=== PATIENT | female | born 1995 | race Caucasian/White ===

== ENCOUNTER → 2019-10-07 15:42 | Outpatient (CLI) | payer OTHER, SELFPAY ==
--- NOTE | ~2019-10-07 | MR_ITS ---
EXAMINATION: MR brain/brain stem wo/w con EXAM DATE: 10/07/2019 17:08 INDICATION: Migraine headache with sore, light flashes right eye. TECHNIQUE: Magnetic resonance imaging (MRI) of the brain/brain stem obtained without contrast. Sagit buck T1, axial diffusion, gradient echo (T2*), T1, T2, FLAIR sequences obtained. Patient was then inj ected with 14 cc intravenous Multihance contrast. Axial and coronal postcontrast T1 weighted sequence s obtained. There is no prior study for comparison. FINDINGS: There are no areas of restricted diffusion to suggest acute infarction. There is no acute hemorrhage seen on the T2*, a hemosiderin sensitive sequence. No intraparenchymal brain mass. The ve ntricles are normal in size. There are no extra-axial collections. Flow voids are seen in the cereb ral arteries on the T2-weighted sequences consistent with their expected patency. The orbits are unr emarkable. Soft tissue is unremarkable. Left frontal lobe developmental venous anomaly, not a clin ically significant finding. No other areas of abnormal enhancement. IMPRESSION: 1. Normal brain MRI examination. Reviewed, dictated and finalized at location A.
[2019-10-07 16:13] LABS: Estimated Glomerular Filt Rate > 60
== END ==
PROVIDERS: PCP Family Medicine; Visit Provider Family Medicine
DX: G43.109 Migraine with aura, not intractable, without status migrainosus (principal)
CPT/HCPCS: 36415; 70553; A9577

== ENCOUNTER 2023-06-16 08:49 | Emergency (ER) | payer OTHER, SELFPAY ==
[2023-06-16 09:00] VITALS: BP 124/93; PULSE 104; RESP 16; TEMP 36.9; O2SAT 99
--- NOTE | 2023-06-16 09:01 | ED.NECK ---
HPI - Neck Pain/Injury General Chief Complaint: Neck Pain/Injury Stated Complaint: NECK PAIN Time Seen by Provider: 06/16/23 09:01 Source: patient Mode of arrival: ambulatory Limitations: no limitations History of Present Illness HPI Narrative: 27-year-old female presented for complaint of left neck pain for 2 days. She states she woke in the morning with neck pain, assuming she slept wrong. Endorses decreased ROM to neck due to pain and stiffness. Since onset she has taking ibuprofen and Tylenol without relief. Was seen by chiropractor yesterday for adjustments and stretching. After that she started with an intermittent 'shooting' pain from shoulder to left base of skull. Denies pain shooting down arms, numbness, tingling or weakness to extremities. Patient plans to return to chiropractor this morning. Related Data Allergies Allergy/AdvReac Type Severity Reaction Status Date / Time cefprozil Allergy Unknown Skin Verified 06/16/23 09:02 Reaction erythromycin base Allergy Unknown Nausea Verified 06/16/23 09:02 Penicillins Allergy Unknown Skin Verified 06/16/23 09:02 Reaction Sulfa (Sulfonamide Allergy Unknown Skin Verified 06/16/23 09:02 Antibiotics) Reaction Review of Systems Review of Systems: CONSTITUTIONAL: Denies body aches, fever, chills, or sweats. EYES: Denies visual changes, redness, or discharge. ENT: Denies rhinorrhea, congestion, sore throat, or otalgia. CARDIOVASCULAR: Denies chest pain, palpitations, or edema. RESPIRATORY: Denies cough or dyspnea. GASTROINTESTINAL: Denies abdominal pain, nausea, vomiting, or diarrhea. GENITOURINARY: Denies dysuria or hematuria. SKIN: Denies rash, itching, or wounds. MUSCULOSKELETAL:Reports left neck pain Denies back pain, joint pain, or myalgia. NEUROLOGIC: Denies headache, numbness, tingling, or weakness. All systems reviewed & are unremarkable except as noted in HPI and below PMFSH Past Medical History Medical History (Updated 06/16/23 @ 09:17 by Shirley Barlow APRN) Fibroadenoma of left breast Generalized anxiety disorder Family History Family History Other Family history of malignant neoplasm No family history of malignant neoplasm Social History Social History Smoking status: Never smoker Alcohol intake: current Substance use: never Substance use type: does not use Lack of Transportation: No Lack of Food: Never True Current Housing: I Have Housing Concerned About Future Housing: No Difficulty Paying Gas/Electric Bills: No Difficulty Paying for Meds: No Currently Unemployed: No Education: Bachelor's Degree Difficulty w/ Childcare or Family Care: No Comments At time of signature, I have reviewed and agree with nursing past medical, surgical, social and family history unless otherwise noted. Please see nursing chart for further information. There is no relevant family history pertinent to the presenting complaint Exam Narrative: GENERAL: Well-appearing, well-nourished, and in no acute distress. HEAD: Normocephalic, atraumatic. EYES: EOMI. No redness or drainage. Conjunctivae normal. ENT: Mucous membranes pink and moist. No rhinorrhea. TMs normal bilaterally. Throat normal. Uvula midline. NECK: Decreased AROM in all directions; left trap tenderness. no VPT. Supple. No lymphadenopathy. CHEST: No respiratory distress. Clear to auscultation. HEART: Regular rate and rhythm. No murmur appreciated. Normal peripheral pulses. ABDOMEN: Soft, nontender, nondistended, normal active bowel sounds. MUSCULOSKELETAL: No bony tenderness. EXTREMITIES: Normal range of motion. No edema. SKIN: Warm, dry, no rash. Capillary refill normal. Normal skin turgor. NEURO: No focal deficits. Alert and oriented x3. Gait steady. PSYCH: Normal affect. Neck: Neck images: 1. area of tenderness with palpation Course
== END 2023-06-16 09:22 | disposition home or self-care (01) ==
PROVIDERS: Emergency Provider Nurse Practitioner Family; PCP Physician Assistant
DX: M54.2 Cervicalgia (principal); F41.1 Generalized anxiety disorder
CPT/HCPCS: 99213; G0463

== ENCOUNTER 2024-09-09 09:30 | Outpatient (CLI) | payer BC, SELFPAY ==
[2024-09-10 08:36] LABS: Kit Draw Collected
== END 2024-09-09 09:31 | disposition home or self-care (01) ==
LOC: ANHGOSHLAB 09:32
PROVIDERS: PCP Family Medicine; Visit Provider Family Medicine
DX: F41.1 Generalized anxiety disorder (principal); F32.A Depression, unspecified; E78.5 Hyperlipidemia, unspecified; Z79.899 Other long term (current) drug therapy
CPT/HCPCS: 36415

== ENCOUNTER 2025-02-19 08:45 | Outpatient (CLI) | payer BC, SELFPAY ==
--- NOTE | ~2025-02-19 | MMUS_ITS ---
EXAMINATION: MM diagnostic christal LT w caryl, US breast LT limited INDICATION: 29-year old female; with LEFT clear colored nipple discharge. History of prior palpable l ump for over 5 years which was evaluated with ultrasound 07/14/2019 and 02/03/2016 and felt to represen t a benign finding. COMPARISON: Ultrasound 07/14/2019 and 02/03/2016. TECHNIQUE: Digital breast tomosynthesis True lateral and CC and MLO views and spot compression views of the LEFT breast were obtained with computer-aided detection to assist in interpretation of the jorge dy. A radiopaque skin marker was placed over the palpable area. Targeted ultrasound of the left breas t was completed. MAMMOGRAM FINDINGS: The breasts are heterogeneously dense, which may obscure small masses. A circumscribed mass containing a focus of calcification persists on spot compression views in the la teral at middle depth that correlates to the radiopaque skin marker. In addition, there is a mass wit h ill-defined margins also seen within the lateral, at middle depth in the left breast, slightly medi al to the lesion described above. LEFT BREAST ULTRASOUND FINDINGS: Targeted evaluation of the subareolar location and lateral breast was completed. There are normal khoa earing ducts seen. At 3:00, 4 cm from the nipple corresponding to the area of palpable lump there is a hypoechoic mass w ith mildly irregular margins that measure 0.5 x 0.63 x 0.34 cm. At 3:00, 3 cm from the nipple, corresponding to the additional mammographic abnormality seen there is an irregular shaped hypoechoic mass with internal vascularity that measure 1.04 x 0.94 x 0.51 cm. IMPRESSION: 1. Indeterminate left breast mass at 3:00, 4 cm from the nipple. Biopsy recommended. 2. Indeterminate left breast mass at 3:00 3 cm from the nipple. Biopsy is recommended 3. Incomplete evaluation of patient's nipple discharge. Consider further evaluation with breast MRI. RECOMMENDATION: Ultrasound-guided core needle biopsy of 2 solid masses at 3:00. Bilateral breast MRI which should be completed prior to the biopsy procedure. BI-RADS 4, SUSPICIOUS Reviewed, dictated and finalized at location B. IMPRESSION: 1. Indeterminate left breast mass at 3:00, 4 cm from the nipple. Biopsy recomm ended. 2. Indeterminate left breast mass at 3:00 3 cm from the nipple. Biopsy is estefanía mmended 3. Incomplete evaluation of patient's nipple discharge. Consider further evalu ation with breast MRI. RECOMMENDATION: Ultrasound-guided core needle biopsy of 2 solid masses at 3:00. Bilateral breast MRI which should be completed prior to the biopsy procedure. BI-RADS 4, SUSPICIOUS
== END 2025-02-19 08:46 | disposition home or self-care (01) ==
LOC: MICIMG 08:46
PROVIDERS: PCP Family Medicine; Visit Provider Nurse Practitioner
DX: N64.52 Nipple discharge (principal)
CPT/HCPCS: 76642; 77061; 77065; G0279